=== PATIENT | female | born 1995 | race Hispanic/Latino ===

== ENCOUNTER → 2017-11-15 | Outpatient (CLI) | payer BC ==
--- NOTE | 2017-11-15 14:42 | Diagnostic Imaging Report ---
PROCEDURE:ABDOMINAL ULTRASOUND COMPARISON:None. INDICATIONS: GASTRITIS, DUODENITIS, RUQ PAIN TECHNIQUE: Transverse and longitudinal images of the upper abdomen were obtained. FINDINGS: Liver: Size: 11.8 cm In the right midclavicular line. Appearance: Increased echogenicity, smooth contour Mass: No focal masses Spleen: Size: 10.3 cm in length Echogenicity: Normal Mass: No focal masses Gallbladder: Stones/Sludge: None Appearance: No wall thickening, pericholecystic fluid or hydrops. Sonographic Baer's Sign: Negative Bile Ducts: Intrahepatic Ducts: No dilatation Extrahepatic Ducts: Common bile duct measures 0.3 cm, no dilatation Pancreas: Visualized portions of the parenchyma demonstrate evidence of mass or ductal dilatation. Right Kidney: Size 11.3 cm Echogenicity: Normal Collecting System: No hydronephrosis Stone: None Cyst/Mass: None Left Kidney: Size: 9.9 cm Echogenicity: Normal Collecting System: No hydronephrosis Stone: None Cyst/Mass: None Vessels: Aorta: Visualized portions are normal Inferior Vena Cava: Visualized portions and normal Main Portal Vein: 1.0 cm, normal size with hepatopedal flow. Free Fluid: No ascites or pleural effusions IMPRESSION: Increased hepatic echotexture suggestive of hepatocellular dysfunction, most commonly steatosis. The remainder of the visualized structures are normal. Dictated by: Angel Melendez M.D. on 11/15/2017 at 14:50 Electronically approved by: Angel Melendez M.D. on 11/15/2017 at 14:50
== END ==
LOC: US 12:55
PROVIDERS: ATTEND Internal Medicine
DX: K29.00 Acute gastritis without bleeding (principal)
CPT/HCPCS: 76700

== ENCOUNTER → 2018-10-31 | Outpatient (CLI) | payer BC ==
[~2018-10-31] MED LIST: BELLADONNA/OPIUM 30 MG SUPP RC ONE; IOPAMIDOL 610MG/1ML 300 MG/ML VIAL IV ONE
--- NOTE | 2018-10-31 14:04 | Diagnostic Imaging Report ---
EXAM: Complete Abdominal Ultrasound INDICATION: ^[id number] ^[id number] ^GASTRO-ESOPHAGEAL REFLUX DZ W/ESOPHAGITIS COMPARISON: Abdominal ultrasound dated 11/15/2017 TECHNIQUE: Transverse and longitudinal images of the upper abdomen were obtained. FINDINGS: Liver: Size: 15.4 cm in the right midclavicular line, normal Appearance: Normal echogenicity, smooth contour Mass: No focal masses Spleen: Size: 9.4 cm in length, normal Echogenicity: Normal Mass: No focal masses Gallbladder: Stones/Sludge: None Wall: 0.3 cm Appearance: No pericholecystic fluid or hydrops. Sonographic Baer's Sign: Negative Bile Ducts: Intrahepatic Ducts: No dilatation Extrahepatic Ducts: Common bile duct measures 0.2 cm, no dilatation Pancreas: Limited visualized pancreas is unremarkable. Right Kidney: Size: 11 cm Echogenicity: Normal Parenchymal thickness: Normal Collecting System: No hydronephrosis Stone: None Cyst/Mass: None Left Kidney: Size: 10.3 cm Echogenicity: Normal Parenchymal thickness: Normal Collecting System: No hydronephrosis Stone: None Cyst/Mass: None Vessels: Aorta: Visualized portions are normal Inferior Vena Cava: Visualized portions are normal Main Portal Vein: 0.9 cm, normal size with hepatopetal flow. Free Fluid: No ascites or pleural effusion IMPRESSION: Normal abdominal ultrasound. Signed by: Dr. Breezy Sands MD on 10/31/2018 2:00 PM
== END ==
LOC: US 10:20
PROVIDERS: ATTEND Internal Medicine
DX: K21.0 Gastro-esophageal reflux disease with esophagitis (principal)
CPT/HCPCS: 76700; Q9967